=== PATIENT | female | born 1985 | race Two or more races ===

== ENCOUNTER 2023-04-20 13:34 | Outpatient (REF) | payer MEDICAID, SELFPAY ==
--- NOTE | ~2023-04-20 | XR_ITS ---
EXAMINATION: XR FOOT, RIGHT CLINICAL INFORMATION: Right foot pain worse on the second digit proximal and medial joint.. COMPARISON: None available. TECHNIQUE: AP, lateral, and oblique views of the right foot. FINDINGS: The bones and soft tissues are normal. No fracture. Alignment is anatomic. Joint spaces are maintained. XR/XR foot RT min 3V IMPRESSION: Unremarkable right foot exam.
== END 2023-04-20 13:35 | disposition home or self-care (01) ==
LOC: HO.HHCX 13:34
PROVIDERS: Visit Provider Family Medicine
DX: M79.674 Pain in right toe(s) (principal)
CPT/HCPCS: 73630

== ENCOUNTER 2023-05-15 13:58 | Outpatient (REF) | payer MEDICAID, SELFPAY ==
[2023-05-15 18:06] LABS: TSH reflex Free T4 0.38 uIU/mL (0.32-4.0)
[2023-05-17 05:53] LABS: Prolactin 6.1 ng/mL
== END 2023-05-15 13:59 | disposition home or self-care (01) ==
LOC: HO.CHCLDS 13:58
PROVIDERS: Visit Provider Advanced Practice Midwife
DX: N91.5 Oligomenorrhea, unspecified (principal)
CPT/HCPCS: 36415; 84146; 84443

== ENCOUNTER 2023-05-22 10:26 | Outpatient (REF) | payer MEDICAID, SELFPAY ==
[2023-05-24 05:58] LABS: Follicle Stimulating Hormone 1.9 mIU/mL
[2023-05-25 23:14] LABS: Estradiol Ultra Sensitive 131 pg/mL
== END 2023-05-22 10:27 | disposition home or self-care (01) ==
LOC: HO.CHCLDS 10:26
PROVIDERS: Visit Provider Advanced Practice Midwife
DX: N91.5 Oligomenorrhea, unspecified (principal)
CPT/HCPCS: 36415; 82670; 83001

== ENCOUNTER 2024-03-05 12:46 | Outpatient (REF) | payer MEDICAID, SELFPAY ==
[2024-03-06 06:06] LABS: CT PCR NOT DETECTED (Not Detect.); NG PCR NOT DETECTED (Not Detect.)
== END 2024-03-05 12:47 | disposition home or self-care (01) ==
LOC: HO.CHCLNP 12:46
PROVIDERS: Visit Provider Family Medicine
DX: Z02.1 Encounter for pre-employment examination (principal)
CPT/HCPCS: 87491; 87591

== ENCOUNTER 2024-03-12 09:26 | Outpatient (REF) | payer MEDICAID, SELFPAY ==
[2024-03-12 14:13] LABS: MANUAL DIFF FLAG NO
[2024-03-12 14:30] LABS: Basophils Absolute Auto 0.1 X10*3/uL (0.0-0.2); Basophils Percent Auto 0.8 % (0-2); Eosinophils Percent Auto 0.3 % (0-4); Hematocrit 40.8 % (37.0-47.0); Hemoglobin 13.7 g/dl (12.0-16.0); Imm Gran Abs Auto 0.04 X10*3/uL (0.00-0.03); Imm Gran Pct Auto 0.7 % (0.0-0.4); Lymphocytes Absolute Auto 1.4 X10*3/uL (1.2-4.9); Mean Corpuscular HGB Conc 33.6 g/dl (31.0-35.0); Mean Corpuscular Hemoglobin 32.3 pg (27.0-33.0); Mean Corpuscular Volume 96.2 fL (80.0-98.0); Mean Platelet Volume 11.1 fL (9.4-12.3); Monocytes Absolute Auto 0.7 X10*3/uL (0.1-1.2); Monocytes Percent Auto 11.4 % (2-11); Neutrophils Percent Auto 64.8 % (45-73); Platelet Count 267 X10*3/uL (160-400); Red Blood Count 4.24 X10*6/uL (4.20-5.50); Red Cell Distribution Width 12.5 % (11.0-16.0); White Blood Count 6.1 X10*3/uL (4.8-10.8)
[2024-03-12 15:07] LABS: Insulin 10 uU/mL (2-29); TSH reflex Free T4 0.67 uIU/mL (0.32-4.0)
[2024-03-12 15:08] LABS: Anion Gap 11 (12-20)
[2024-03-12 15:13] LABS: Alanine Aminotransferase 15 U/L (0-31); Albumin Level 4.1 g/dL (3.5-5.0); Alkaline Phosphatase 71 U/L (39-117); Aspartate Amino Transferase 12 U/L (5-31); Bilirubin Total 0.6 mg/dL (0.0-1.0); Blood Urea Nitrogen 13 mg/dL (9-16); Calcium 9.5 mg/dL (8.4-10.2); Carbon Dioxide 27 mmol/L (22-29); Chloride 105 mmol/L (96-108); Cholesterol 187 mg/dL (<200); Estimated Glomerular Filt Rate > 60; Glucose Random 75 mg/dL (60-115); HDL Cholesterol 53 mg/dL (>40); LDL Cholesterol Calculated 115 mg/dL (<100); Potassium 4.1 mmol/L (3.3-5.1); Sodium 139 mmol/L (135-145); Total Protein 7.4 g/dL (6.5-8.0); Triglycerides 97 mg/dL (<150)
[2024-03-13 07:26] LABS: HIV AB/AG Nonreactive (Nonreactive); HIV Num 1 0.06 S/CO (0.00-0.99); ~HepC Num1 0.14 S/CO (0.00-0.79); ~Hepatitis C Antibody Nonreactive (Nonreactive)
[2024-03-13 07:39] LABS: Syphilis Screen Nonreactive (Nonreactive)
== END 2024-03-12 09:27 | disposition home or self-care (01) ==
LOC: HO.CHCLDS 09:26
PROVIDERS: Visit Provider Family Medicine
DX: Z02.1 Encounter for pre-employment examination (principal); Z11.4 Encounter for screening for human immunodeficiency virus [HIV]; E66.3 Overweight
CPT/HCPCS: 36415; 80053; 80061; 83525; 84443; 85025; 86780; 86803; 87389

== ENCOUNTER 2024-04-01 15:09 | Outpatient (REF) | payer MEDICAID, SELFPAY ==
[2024-04-01 17:57] LABS: MANUAL DIFF FLAG NO
[2024-04-01 18:17] LABS: Basophils Absolute Auto 0.1 X10*3/uL (0.0-0.2); Basophils Percent Auto 0.7 % (0-2); Hematocrit 41.8 % (37.0-47.0); Hemoglobin 13.8 g/dl (12.0-16.0); Imm Gran Abs Auto 0.05 X10*3/uL (0.00-0.03); Imm Gran Pct Auto 0.5 % (0.0-0.4); Lymphocytes Absolute Auto 1.7 X10*3/uL (1.2-4.9); Lymphocytes Percent Auto 16.9 % (20-40); Mean Corpuscular Hemoglobin 31.9 pg (27.0-33.0); Mean Corpuscular Volume 96.5 fL (80.0-98.0); Mean Platelet Volume 10.9 fL (9.4-12.3); Monocytes Absolute Auto 1.1 X10*3/uL (0.1-1.2); Monocytes Percent Auto 10.2 % (2-11); Neutrophils Absolute Auto 7.4 x10*3/uL (2.0-8.3); Neutrophils Percent Auto 71.7 % (45-73); Platelet Count 279 X10*3/uL (160-400); Red Blood Count 4.33 X10*6/uL (4.20-5.50); Red Cell Distribution Width 12.2 % (11.0-16.0); White Blood Count 10.3 X10*3/uL (4.8-10.8)
[2024-04-01 18:20] LABS: C Reactive Protein 0.31 mg/dL (< or = 0.50)
[2024-04-01 19:20] LABS: Erythrocyte Sedimentation Rate 28 MM/HR (0-20)
== END 2024-04-01 15:10 | disposition home or self-care (01) ==
LOC: HO.CHCLDS 15:09
PROVIDERS: Visit Provider Internal Medicine
DX: R22.1 Localized swelling, mass and lump, neck (principal)
CPT/HCPCS: 36415; 85025; 85652; 86140

== ENCOUNTER 2025-03-19 11:23 | Outpatient (REF) | payer MEDICAID, SELFPAY ==
[2025-03-19 15:02] LABS: Anion Gap 10 (12-20); Blood Urea Nitrogen 15 mg/dL (9-16); Calcium 8.9 mg/dL (8.4-10.2); Carbon Dioxide 26 mmol/L (22-29); Chloride 106 mmol/L (96-108); Estimated Glomerular Filt Rate > 60; Potassium 3.9 mmol/L (3.3-5.1); Sodium 138 mmol/L (135-145)
== END 2025-03-19 11:24 | disposition home or self-care (01) ==
LOC: HO.CHCLDS 11:23
PROVIDERS: Visit Provider Student in an Organized Health Care Education/Training Program
DX: R51.9 Headache, unspecified (principal)
CPT/HCPCS: 36415; 80048

== ENCOUNTER 2025-05-15 09:32 | Outpatient (REF) | payer MEDICAID, SELFPAY ==
--- OUTSIDE RECORDS SUMMARY | 2025-05-14 14:00 | XMS_ITS | Encounter Summary ---
Author Organization [employer] Address [address] [facility] [address] [place] [address] Care Team Providers Care Mobile Product Manager Name Role Phone Enriqueta Downs MD Primary Care Provider Encounter Details Date Type Department Care Team ([facility] Contact Info) Description 05/14/2025 2:00 PM EST Office Visit [facility] MED & PEDS [address] [place], [place] [phone] Enriqueta Downs MD [address] [place] [address] Annual physical exam (Primary Dx); Encounter for immunization; Constipation, unspecified constipation type Social History Tobacco Use Types Packs/Day Years Used Date Smoking Tobacco: Never Passive Smoke Exposure: Never Smokeless Tobacco: Never Alcohol Use Standard Drinks/Week Comments Never 0 (1 standard drink = 0.6 oz pur e alcohol) Depression Answer Date Recorded Patient Health Questionnaire-9 Score 3 05/14/2025 Patient Health Questionnaire-9 Score 3 05/14/2025 Last PHQ-9: Questionnaire Data Not on file 1 07/14/2024 Housing Stability Answer Date Recorded What is your housing situation today? I have mine ewiss 08/19/[address] you li ve. Do you have problems with any of the following? None of the above 08/19/2024 Food Insecurity Answer Date Recorded Within the past 12 months, y ou worried that your food would run out before you got money to buy more: Never True 08/19/2024 Within the past 12 months,th e food you bought just didn't last and you didn't have enough money to get more: Never True Transportation Answer Date Recorded In the past 12 months, has l ack of transportation kept you from medical appts, meetings, work or from getting things needed for daily living? No 08/19/2024 Utilities Answer Date Recorded In the past 12 months, has t he electric, gas, oil or water company threatened to shut off services in your home? No 08/19/2024 Depression Answer Date Recorded Patient Health Questionnaire-2 Score 0 05/14/2025 Internet Access Answer Date Recorded Internet Access Q1 Yes 08/19/2024 Internet Access Q2 Not on file 08/19/2024 Comments No Sex and Gender Information Value Date Recorded Sex Assigned at Female 10/20/2022 12:52 PM EDT Legal Sex Female 2:33 PM EDT Gender Identity Female 10/20/2022 12:52 PM EDT Sexual Orientation Straight 10/20/2022 12 :59 PM EDT documented as of this encounter Last Filed Vital Signs Vital Sign Reading Time Taken Comments Blood Pressure 124/84 05/14/2025 2:21 PM EST Pulse 64 05/14/2025 2:21 PM EST Temperature 37.1 C (98.8 F) 05/14/2025 2:21 PM EST Respiratory Rate 20 05/14/2025 2:21 PM EST Oxygen Saturation 98% 05/14/2025 2:21 PM EST Inhaled Oxygen Concentration - - Weight 78.7 kg (173 lb 9.6 oz) 05/14/2025 2:21 P M EST Height 162.6 cm (5' 4 ) 05/14/2025 2:21 PM EST Body Mass Index 29.8 05/14/2025 2:21 PM EST documented in this encounter Functional Status * Over the past 2 weeks, how often have you been bothered by any of the following problems? Question Answer Date of Assessment Author Patient Health Questionnaire-2 Score 0 04/26 3:17 PM EST Akbar Childs MA * Little interest or pleasure in doing things Answer Date of Assessment Author Not at all 05/14/2025 3:17 PM EST Akbar Childs MA * Feeling down, depressed, or hopeless Answer Date of Assessment Author Not at all 05/14/2025 3:17 PM EST Akbar Childs MA * Trouble falling or staying asleep, or sleeping too much Answer Date of Assessment Author Several days 05/14/2025 3:17 PM Akbar Thomas MA * Feeling tired or having little energy Answer Date of Assessment Author More than half the days 05/14/2025 3:17 PM Akbar Krishnan MA * Poor appetite or overeating Answer Date of Assessment Author Not at all 05/14/2025 3:17 PM Akbar Thomas MA * Feeling bad about yourself - or that you are a failure or have let yourself or your family down Answer Date of Assessment Author Not at all 05/14/2025 3:17 PM Akbar Thomas MA * Trouble concentrating on things, such as reading the newspaper or watching television Answer Date of Assessment Author Not at all 05/14/2025 3:17 PM Akbar Thomas MA * Moving or speaking so slowly that other people could have noticed? Or the opposite - being so fidgety or restless that you have been moving around a lot more than usual. Answer Date of Assessment Author Not at all 05/14/2025 3:17 PM Akbar Thomas MA * Thoughts that you would be better off or hurting yourself in some way Answer Date of Assessment Author Not at all 05/14/2025 3:17 PM Akbar Thomas MA * Patient Health Questionnaire-9 Score Answer Date of Assessment Author 3 05/14/2025 3:17 PM Akbar Thomas MA * How difficult have these problems made it for you to do your work, take care of things at home, or get along with other people? Answer Date of Assessment Author Not difficult at all 05/14/2025 3:17 PM Akbar Gagnon MA documented as of this encounter Plan of Treatment Upcoming Encounters Date Type Department Care Team (Late st Contact Info) Description 06/12/2025 12:45 PM EST Office Visit [facility] ADULT DENTAL [address] [place] [address] Lilliam Escobar 07/09/2025 1:00 PM EST Office Visit [facility] OPTOMETRY [address] [place] [address] Shaniqua Ramirez OD [address] [place] [address] Scheduled Orders Name Type Priority Associated Diagnoses Orde r Schedule CBC auto differential Lab Routine Annual physical exam Expected: 05/14/2025 (Approximate), Expires: 05/14/2026 Comprehensive Metabolic Panel Lab Routine Annual physical exam Expected: 05/14/2025 (Approximate), Expires: 05/14/2026 Lipid Panel, Standard Lab Routine Annual physical exam Expected: 05/14/2025 (Approximate), Expires: 05/14/2026 TSH W/Reflex to FT4 Lab Routine Annual physical exam Expected: 05/14/2025 (Approximate), Expires: 05/14/2026 documented as of this encounter Visit Diagnoses Diagnosis Annual physical exam- Primary Routine general medical examination at a health care facility Encounter for immunization Constipation, unspecified constipation type documented in this encounter Additional Health Concerns Assessment Noted Time PHQ-9 Depression Total Score: 3 05/14/20 25 3:17 PM EST documented as of this encounter Care Teams Mobile Product Manager Relationship Specialty Start Date End Date Enriqueta Downs MD [address] [place] [phone] PCP - General Family Medicine 10/20/22 documented as of this encounter
--- OUTSIDE RECORDS SUMMARY | 2025-05-15 10:06 | XMS_ITS | Clinical Summary ---
Author Organization [employer] Address [address] [facility] [address] [place] [address] Care Team Providers Care Can Closing Machine Tender Name Role Phone Enriqueta Downs MD Primary Care Provider [phone] Allergies No known active allergies Medications No known medications Active Problems Problem Noted Date Diagnosed Date Blurry vision, bilateral 03/05/2024 Assessment & Plan (03/05/2024 11:38 AM EDT): Referral to Hydroelectric Station Operator Chief for further evaluation of Sx. Pain of toe of right foot 04/20/2023 Assessment & Plan (04/20/2023 11:42 AM EDT): Patient that presented visit with R foot pain, worsen on 2nd digit, will be sent for Foot X-Rays. Referred to Podiatry. Physical exam, pre-employment 02/27/2023 Assessment & Plan (03/05/2024 11:37 AM EDT): Ordering lab work for further evaluation. Assessment & Plan (02/27/2023 9:54 AM EDT): Discussed calorie deficit, recommended reduction of 20-30% of maintenance calories; aircraft technician referral offered. Recommended to decrease soda and sugary beverage consumption. Recommended at least 20 g per meal of protein to assist with satiety. Recommended at least 150 min/week of moderate intensity exercise. Constipation 11/14/2022 Assessment & Plan (09/03/2023 10:36 PM EDT): Continued intermittent episodes of constipation. Has made dietary changes which has helped. Assessment & Plan (02/20/2023 3:00 PM EDT): Continued intermittent episodes of constipation. Reports improvement on senna, will resend for symptom relief. Assessment & Plan (11/14/2022 2:33 PM EDT): Will start on miralax prn. Overweight 10/20/2022 Assessment & Plan (03/05/2024 11:37 AM EDT): Continue lifestyle changes, ordering lab work for recheck. Assessment & Plan (09/03/2023 10:35 PM EDT): Referred to aircraft technician for a detailed assessment and diet plan. She is encouraged to continue her exervise program and to monitor her dietary intake to address her concerns about constipation. Discussed calorie deficit, recommended reduction of 20-30% of maintenance calories; aircraft technician referral offered. Recommended to decrease soda and sugary beverage consumption. Recommended at least 20 g per meal of protein to assist with satiety. Recommended at least 150 min/week of moderate intensity exercise. Assessment & Plan (10/20/2022 1:51 PM EDT): Will send labs to check levels and follow up. Resolved Problems Problem Noted Date Diagnosed Date Resolved Date Cramp of muscle of left upper extremity 10/20/2022 03/05/2024 Assessment & Plan (10/20/2022 1:52 PM EDT): Patient with muscle cramps in LUE and discomfort described as heaviness. Will send for EMG at [facility]. History of Helicobacter pylori infection 11/08/2021 05/14/2025 Encounters Date Type Department Care Team Description 05/14/2025 2:00 PM EST Office Visit [facility] MED & PEDS [address] [place] [address] Enriqueta Downs MD Annual physical exam (Primary Dx); Encounter for immunization; Constipation, unspecified constipation type 05/14/2025 Travel 05/13/2025 Travel 05/07/2025 Patient Outreach [facility] [address] [place] [address] Enriqueta Downs MD Pre-visit Planning (SDOH screening completed on 08/19/24) 03/31/2025 Orders Only [facility]ED[facility] [address] [place] [address] Adelaida Medina MD Nonintractable episodic headache, unspecified headache type (Primary Dx) 03/31/2025 Results Follow-Up [facility] [address] [place] [address] Adelaida Medina MD MR Brain w/o Contrast 03/19/2025 11:15 AM EDT Office Visit [facility]ED[facility] [address] [place] [address] Adelaida Medina MD Nonintractable episodic headache, unspecified headache type (Primary Dx) 03/19/2025 Travel 03/18/2025 Telephone [facility] [address] [place] [phone] Enriqueta Downs MD Nurse Triage 03/04/2025 Patient Outreach [facility] [address] [place] [phone] Enriqueta Downs MD Care Coordination (CH[facility] outreach for SDOH PT-1 and food needs-referral completed /) 03/04/2025 Telephone [facility] [address] [place] [address] Enriqueta Downs MD PT1 02/20/2025 Travel from Last 3 Months Immunizations Immunization Administration Dates Next Due DTP 12/30/1991, 9,05/11/1988,1987,1987 DTaP / HiB / IPV 12/21/1988 Hep A, Adult 11/22/2021 Hep B, adult 04/24/2000,01/26/1999,12/29/1998 IPV 12/30/1991, 9,05/11/1988,1987,1987 Influenza Injectable Quadriv alant Preservative Free IIV4 MDCK 04/21/2020 Influenza injectable quadriv alent preservative free 04/20/2023 Influenza, IIV3, injectable 06/22/2009 Influenza, Unspecified 06/22/2009 Influenza, seasonal, injecta ble, preservative free 05/14/2025,03/05/2024,06/05/2012 MMR 12/29/1996,07/13/1988 TD (adult), 2 Lf tetanus tox oid, preservative free, adsorbed 12/29/1998 Td (adult) 12/29/1998 Tdap 01/29/2019,09/13/2012,08/29/2010 Varicella 01/01/2012,04/19/2011,01/27/2000 Family History Medical History Relation Name Comments No Known Problems Father Diabetes Paternal Grandfather Heart disease Paternal Grandfather Hypertension Paternal Grandfather Heart disease Paternal Grandmother Hypertension Paternal Grandmother Relation Name Status Comments Father Paternal Grandfather Paternal Grandmother Social History Tobacco Use Types Packs/Day Years Used Date Smoking Tobacco: Never Passive Smoke Exposure: Never Smokeless Tobacco: Never Tobacco Cessation:Counseling Given: Not Answered Alcohol Use Standard Drinks/Week Comments Never 0 (1 standard drink = 0.6 oz pur e alcohol) Depression Answer Date Recorded Patient Health Questionnaire-9 Score 3 05/14/2025 Patient Health Questionnaire-9 Score 3 05/14/2025 Last PHQ-9: Questionnaire Data Not on file 1 07/14/2024 Housing Stability Answer Date Recorded What is your housing situation today? I have mine weiss 08/19/[address] you li [...] Orientation Straight 10/20/2022 12 :59 PM EDT Last Filed Vital Signs Vital Sign Reading [...] Mass Index 29.8 05/14/2025 2:21 PM EST Plan of Treatment Upcoming Encounters Date Type Department Care Team (Late st Contact Info) Description 06/12/2025 12:45 PM EST Office Visit [facility] ADULT DENTAL [address] [place] [address] Lilliam Escobar 07/09/2025 1:00 PM EST Office Visit [facility] OPTOMETRY [address] [place], [place] [phone] Shaniqua Rmairez, OD [address] [place] [address] Health Maintenance Due Date Last Done Comments Family Planning (PISQ) 2002 HPV Vaccines (1 - 3-dose series) 2002 Dental X-Ray: Bitewings 05/29/2025 05/28/2024 Dental Oral Exam 06/11/2025 12/09/2024, 05/28/2024 Dental Prophylaxis 06/11/2025 12/09/2024, 05/28/2024 Alcohol/Substance Use Screening 08/19/2025 08/19/2024 SDOH Screening 08/19/2025 08/19/2024 Pap Smear 11/14/2025 11/14/2022 Disability Screening 05/13/2026 05/13/2025 COVID-19 Vaccine ( season) 2026 11/24/2020, 11/03/2020 Postponed from 02/23/2025 (Patient Refused) Depression Screening 05/14/2026 05/14/2025, 05/14/20 Tobacco Screening 05/14/2026 05/14/2025 Dental X-Ray: Full Mouth 05/29/2027 05/28/2024 Cervical Cancer Screening 11/15/2027 HPV/Cotest 11/15/2027 11/14/2022 DTaP/Tdap/Td Vaccines (9 - Td or Tdap) 01/29/2029 01/29/2019, 09/13/2012, 08/29/2010, Additional history exists Zoster Vaccines (1 of 2) 2037 RSV Patients and Patients Aged 60 years or older (1 - 1-dose 75+ series) 2062 HIB Vaccines Completed 12/21/1988 IPV Vaccines Completed 12/30/1991, 04/27, 12/21/1988, Additional history exists Hepatitis B Vaccines Completed 04/24/2000, 01/26/1999, 12/29/1998 Hepatitis A Vaccines Aged Out 11/22/2021 No long er eligible based on patient's age to complete this topic HIV Screening Completed 03/12/2024, 11/08/2021 Hepatitis C Screening Completed 03/12/2024, 022 Influenza Vaccine Completed 05/14/2025, , 04/20/2023, Additional history exists Meningococcal B Vaccine Aged Out No l onger eligible based on patient's age to complete this topic Meningococcal Vaccine Aged Out No ramon tamia eligible based on patient's age to complete this topic Pneumococcal Vaccine: Pediatrics (0 to 5 Years) and At-Risk Patients (6 to 49) Years Aged Out No longer eligible based on patient's age to complete this topic RSV under 20 months Aged Out No longe r eligible based on patient's age to complete this topic Rotavirus Vaccines Aged Out No longer eligible based on patient's age to complete this topic Procedures Procedure Name Priority Date/Time Associated Diagnosis Comments MR BRAIN WO CONTRAST Routine 03/30/2025 Nonintractable episodic headache, unspecified headache type BASIC METABOLIC PANEL Routine 03/19/2025 11:27 AM EDT Nonintractable episodic headache, unspecified headache type PROPHYLAXIS - ADULT Routine 12/09/2024 3 :00 PM EDT PERIODIC ORAL EVALUATION - ESTABLISHED PATIENT Routine 12/09/2024 3:00 PM EDT INTRAORAL - COMPLETE SERIES OF RADIOGRAPHIC IMAGES Routine 05/28/2024 10:00 AM EST Dental caries Gingivitis HEPATITIS C AB W/REFL TO HCV RNA, QN, PCR Routine 03/12/2024 9:29 AM EDT Physical exam, pre-employment HIV 1/2 ANTIGEN/ANTIBODY, FOURTH GENERATION W/RFL Routine 03/12/2024 9:29 AM EDT Physical exam, pre-employment IMAGE-GUIDED PAP W/AGE BASED SCR,W/CT/NG/TRICH Routine 11/14/2022 2:20 PM EDT Cervical cancer screening from Last 3 Months or Most Recently Relevant to Health Maintenance Results * MR Brain w/o Contrast (03/30/2025) Anatomical Region Laterality Modality Brain Magnetic Resonan ce Adelaida Medina MD [facility] MRI PROCEDURES Final Result * (ABNORMAL) Basic Metabolic Panel (03/19/2025 11:27 AM EDT) Sodium 138 135 - 145 mmol/L [facility] Potassium 3.9 3.3 - 5.1 mmol/L [facility] Chloride 106 96 - 108 mmol/L [facility] Carbon Dioxide 26 22 - 29 mmol/L [facility] Anion Gap 10(L) 12 - 20 [facility] Urea Nitrogen (BUN) 15 9 - 16 mg/dL [facility] Creatinine, Serum 0.65 0.5 - 1.4 mg/dL [facility] Estimated Glomerular Filt Rate >60 [facility] Comment:Chronic Kidney Disea se: Estimated GFR < 60 mL/min/[id number] Kidney Disease: Estimated GFR < 15 mL/min/1.73m2 Glucose 85 60 - 115 mg/dL [facility] Calcium 8.9 8.4 - 10.2 mg/dL [facility] Blood Venous blood specimen / Unknown 03/19/2025 11:27 AM EDT 03/19/2025 2:37 PM EDT us Adelaida Medina MD LAB BLOOD ORDERABLES Final Resul t Performing Organization Address [facility]/ZIP Co de Phone Number [facility] [address] [place] [phone] * Hepatitis C Antibody with Reflex to HCV, RNA, Quantitative, Real-Time PCR (03/12/2024 9:29 AM EDT) Hepatitis C Antibody Nonreactive Nonreactive [facility] Comment:Antibodies to HCV no t detected; does not exclude early acuteHCV infection. Blood Venous blood specimen / Unknown 03/12/2024 9:29 AM EDT 03/12/2024 2:13 PM EDT us Enriqueta Downs MD LAB BLOOD ORDERABLES Final Re sult Performing Organization Address [facility]/ZIP Co de Phone Number [facility] [address] [place] [phone] * HIV-1/2 Antigen and Antibodies, Fourth Generation, with Reflexes (03/12/2024 9:29 AM EDT) HIV AB/AG Nonreactive Nonreactive [facility] Comment:HIV-1 p24 Ag and/or HIV-1/HIV-2 Ab not detected.A test result that is nonreactive does not exclude thepossibility of exposure to or infection with HIV-1 and/orHIV-2. Nonreactive results in this assay for individualswith prior exposure to HIV-1 and/or HIV-2 may be due toantigen and antibody levels that are below the limit ofdetection of this assay.The [employer] HIV Ag/Ab Combo assay result andsupplemental assay results should be interpreted inconjunction with the patient's clinical presentation,history and other laboratory results. If the results areinconsistent with clinical evidence, additional testing issuggested to confirm the result. Blood Venous blood specimen / Unknown 03/12/2024 9:29 AM EDT 03/12/2024 2:13 PM EDT us Enriqueta Downs MD LAB BLOOD ORDERABLES Final Re sult [facility] [address] [place] [phone] * Image-Guided Pap with Age-Based Screening??with CT/NG,??Trichomonas (11/14/2022 2:20 PM EDT) Comment [employer] Comment: This order for age-based cervical cancer and STI screening follows ACOG guidelines(PB 168, 140, ESV339). See individual assays for performing site location. Clinical Information: 37 YO F NEEDS CER CAN SCREENING [employer] LMP: 10/20/22 [employer] Prev. PAP: NO [facility] Prev. BX: NO [facility] SOURCE: None given [employer] Statement Of Adequacy: [employer] Comment: Satisfactory for evaluation. Endocervical/transformation zone component present. Interpretation/Re sult: Negative for intraepithelial lesion or malignancy. [employer] COMMENT: This Pap test has been evaluated with computer assisted technology. [employer] Desk Maker: Joseph NoiseFreet Comment: KR, CT(ASCP) CT screening location: [address] [address] (Always Message) [facility] [employer] Comment: EXPLANATORY NOTE: The Pap is a screening test for cervical cancer. It is not a diagnostic test and is subject to false negative and false positive results. It is most reliable when a satisfactory sample, regularly obtained, is submitted with relevant clinical findings and history, and when the Pap result is evaluated along with historic and current clinical information. HPV nRNA E6/E7 Not Detected Not Detected [employer] Comment: Methodology: Outsole [employer]acker-Mediated Amplification This assay detects E6/E7 viral messenger RNA (mRNA) from 14 high-risk HPV types (16,18,31,33,35,39,45,51,52,56,58,59,66,68). Cervical sources are required for HPV testing. If a vaginal source from a patient who has had a total hysterectomy with removal of cervix was submitted, please contact the testing laboratory for alternative testing options. For additional information, please refer to [email or web address].[email or web address]/faq/PXC581v7 (This link if provided for information/ educational purposes only.) Chlamydia trachomatis RNA, TMA, Urogenital NOT DETECTED NOT DETECTED [employer] Neisseria gonorrhoeae RNA, TMA, Urogenital NOT DETECTED NOT DETECTED [employer] Comment [employer] Comment: The analytical performance characteristics of this assay, when used to test SurePath(TM) specimens have been determined by [employer]. The modifications have not been cleared or approved by the FDA. This assay has been validated pursuant to the CLIA regulations and is used for clinical purposes. For additional information, please refer to https://NuORDER.[email or web address]/faq/ASX192 (This link is being provided for information/ educational purposes only.) Trichomonas vaginalis, QL, TMA, PAP Vial NOT DETECTED NOT DETECTED [employer] Comment: The analytical performance characteristics of this assay have been determined by [employer]. The modifications have not been cleared or approved by the FDA. This assay has been validated pursuant to the CLIA regulations and is used for clinical purposes. For additional information, please refer to [email or web address]/ [email or web address]/Trichomonastma (This link is being provided for information/ educational purposes only.) Cervix 11/14/2022 2:20 PM EDT 11/15/2022 5:48 AM EDT us Enriqueta Downs MD LAB CYTOLOGY ORDERABLES Final Result [facility] [address] [facility], [place] [address] [facility] [address] [place] [phone] from Last 3 Months or Most Recently Relevant to Health Maintenance Insurance [facility] C3 DENTAL-[facility] MEDICAID STAND ADULT Care Teams Can Closing Machine Tender Relationship Specialty Start Date End Date Enriqueta Downs MD [address] [place] [phone] PCP - General Family Medicine 10/20/22
--- OUTSIDE RECORDS SUMMARY | 2025-05-15 10:06 | XMS_ITS | Encounter Summary ---
Author Organization [employer] [facility] Address [address] [facility] 7t [place] [address] Care Team Providers Care Instructional Design Consultant Name Role Phone Enriqueta Downs MD Primary Care Provider [phone] Encounter Details Date Type Department Care Team (Latest Contact Info) Description 05/14/2025 Travel Social History Tobacco Use Types Packs/Day Years [...] PM EDT documented as of this encounter Functional Status * Over the past 2 weeks, how often have you been bothered by any of the following problems? Question Answer Date of Assessment Author Patient Health Questionnaire-2 Score 0 04/26 3:17 PM Akbar Thomas MA * Little interest or pleasure in doing things Answer Date of Assessment Author Not at all 05/14/2025 3:17 PM Akbar Thomas MA * Feeling down, depressed, or hopeless Answer Date of Assessment Author Not at all 05/14/2025 3:17 PM Akbar Thomas MA * Trouble falling or staying asleep, [...] Not difficult at all 05/14/2025 3:17 PM EST Akbar Vick MA documented as of this encounter Plan of Treatment Upcoming Encounters Date Type Department Care Team (Late st Contact Info) Description 06/12/2025 12:45 PM EST Office Visit [facility] CHC ADULT DENTAL [address] [place] [address] Lilliam Escobar 07/09/2025 1:00 PM EST Office Visit [facility] OPTOMETRY [address] [place] [address] Shaniqua Ramirez, OD [address] [place] [address] documented as of this encounter Visit Diagnoses Not on filedocumented in this encounter Additional Health Concerns Assessment Noted Time PHQ-9 Depression Total Score: 3 05/14/20 25 3:17 PM EST documented as of this encounter Care Teams Instructional Design Consultant Relationship Specialty Start Date End Date Enriqueta Downs MD [address] [place] [address] PCP - General Family Medicine 10/20/22 documented as of this encounter
--- OUTSIDE RECORDS SUMMARY | 2025-05-15 10:06 | XMS_ITS ---
Author Name [facility] Organization Unknown Care Team Organization Name Specialty Phone Email Start Date End Da te [facility] Valentine Knox APRN Primary Care 10/30/2022 02/11/2024 [facility] Eileen Duggan Primary Care 05/02/2022
--- OUTSIDE RECORDS SUMMARY | 2025-05-15 10:06 | XMS_ITS | Encounter Summary ---
Author Organization [employer] [facility] Address [address] [facility] 7t [place] [address] Care Team Providers Care Topology Teacher Name Role Phone Enriqueta Downs MD Primary Care Provider [phone] Encounter Details Date Type Department Care Team (Latest Contact Info) Description 05/13/2025 Travel Social History Tobacco Use Types Packs/Day [...] PM EDT documented as of this encounter Plan of Treatment Upcoming Encounters Date Type Department Care Team (Late st Contact Info) Description 06/12/2025 12:45 PM EST Office Visit [facility] CHC ADULT DENTAL [address] [place] [address] Lilliam Escobar 07/09/2025 1:00 PM EST Office Visit [facility] OPTOMETRY [address] [place] [address] Shaniqua Ramirez, OD [address] [place] [address] documented as of this encounter Visit Diagnoses Not on filedocumented in this encounter Additional Health Concerns Assessment Noted Time PHQ-9 Depression Total Score: 0 08/19/19 25 10:36 AM EST documented as of this encounter Care Teams Topology Teacher Relationship Specialty Start Date End Date Enriqueta Downs MD [address] [place] [address] PCP - General Family Medicine 10/20/22 documented as of this encounter
--- OUTSIDE RECORDS SUMMARY | 2025-05-15 10:06 | XMS_ITS | Encounter Summary ---
Author Organization [employer] Address [address] [facility] [address]t [place] [address] Care Team Providers Care Lobby Porter Name Role Phone Enriqueta Downs MD Primary Care Provider [phone] Reason for Visit * Reason Onset Date Comments PT-1 01/01/2025 Encounter Details Date Type Department Care Team ([facility] st Contact Info) Description 01/01/2025 Telephone [facility] MEDICINE [address] [place] [address] Enriqueta Downs MD [address] [place] [address] PT-1 Social History Tobacco Use Types Packs/Day Years Used Date Smoking Tobacco: Never Passive Smoke Exposure: Never Smokeless Tobacco: Never Alcohol Use Standard Drinks/Week Comments Never 0 (1 standard drink = 0.6 oz pur e alcohol) Depression Answer Date Recorded Patient Health Questionnaire-9 Score 0 08/19/2024 Patient Health Questionnaire-9 Score 0 08/19/2024 Last PHQ-9: Questionnaire Data Not on file 0 08/19/2024 Housing Stability Answer Date Recorded What is [...] Date Recorded Patient Health Questionnaire-2 Score 0 08/19/2024 Internet Access Answer Date Recorded Internet Access Q1 Yes 08/19/2024 Internet Access Q2 Not on file 08/19/2024 Comments No Sex and Gender Information Value Date Recorded Sex Assigned at Female 10/20/2022 12:52 PM EDT Legal Sex Female 2:33 PM EDT Gender Identity Female 10/20/2022 12:52 PM EDT Sexual Orientation Straight 10/20/2022 12 :59 PM EDT documented as of this encounter Miscellaneous Notes * Telephone Encounter - Dariusz Rubi - 01/01/2025 11:18 AM EDT Patient calling requesting PT1 Home Address verified: Y/N: Yes Provider name or facility name: [facility] Facility Address: [address] [place] [address] Escort needed: Y/N: Yes Do you have a wheelchair: Y/N: No If yes- Manual or electric: N/A Visits: Twice a month documented in this encounter Plan of Treatment Upcoming Encounters Date Type Department Care Team ([facility] Contact Info) Description 06/12/2025 12:45 PM EST Office Visit [facility] CHC ADULT DENTAL [address] [place] [address] Lilliam Escobar 07/09/2025 1:00 PM EST Office Visit [facility] OPTOMETRY [address] [place], [place] [phone] Shaniqua Ramirez OD [address] [place] [address] documented as of this encounter Visit Diagnoses Not on filedocumented in this encounter Additional Health Concerns Assessment Noted Time PHQ-9 Depression Total Score: 0 08/19/19 10:36 AM EST documented as of this encounter Care Teams Lobby Porter Relationship Specialty Start Date End Date Erniqueta Downs MD [address] [place] [address] PCP - General Family Medicine 10/20/22 documented as of this encounter
--- OUTSIDE RECORDS SUMMARY | 2025-05-15 10:06 | XMS_ITS | Encounter Summary ---
Author Organization [employer] Address [address] [facility] [place] [address] Care Team Providers Care [employer] Founder Name Role Phone Enriqueta Downs MD Primary Care Provider [phone] Reason for Visit * Reason Onset Date Comments Nurse Triage 03/18/2025 Encounter Details Date Type Department Care Team ([facility] st Contact Info) Description 03/18/2025 Telephone [facility] [address] [place] [address] Enriqueta Downs MD [address] [place] [address] Nurse Triage Social History Tobacco Use Types Packs/Day Years [...] encounter Miscellaneous Notes * Telephone Encounter - Sandee Collins RN - 03/18/2025 4:25 PM EDT Triage call Pt reports headache and dizziness for a month and a half. Pt feels like this headache is caused by drinking water. Pt describes this headache as pressure . Pt reports dizziness also which causes Pt to have to sit down for safety. Pt denies a spinning of the room just a lightheadedness.ASK apt with Dr. Medina 03/19/26 @ 1115am. Pt agrees with disposition and insurance is verified as active prior to booking. Protocol Used: Headache (Adult) Protocol-Based Disposition: See in Office or Video Visit Today or Tomorrow Video visit not offered Positive Triage Question: * Moderate headache (e.g., interferes with normal activities) present > 24 hours and unexplained * All higher-acuity triage questions were negative Care Advice Discussed: * Reassurance and Education - Muscle Tension Headache * Pain Medicines * Rest for Headache * Cold Pack for Headache * Neck Massage for Headache * Reasons To Call Back - Severe headache lasts over 2 hours after pain medicine - Headache lasts over 24 hours despite using a pain medicine - You become worse * Telephone Encounter - Cintia Dai - 03/18/2025 3:48 PM EDT Symptoms: Headache, Dizziness Outcome: Schedule an urgent appointment (within 4 hours) or talk to a nurse or provider soon Reason: Getting worse The caller accepted this outcome. Contact pt at [phone] Need asset protection professional documented in this encounter Plan of Treatment Upcoming Encounters Date Type Department Care Team ([facility] st Contact Info) Description 06/12/2025 12:45 PM EST Office Visit [facility] CHC ADULT DENTAL [address] [place] [address] Lilliam Escobar 07/09/2025 1:00 PM EST Office Visit [facility] OPTOMETRY [address] [place], [place] [phone] Shaniqua Ramirez, OD [address] [place] [address] documented as of this encounter Visit Diagnoses Not on filedocumented in this encounter Additional Health Concerns Assessment Noted Time PHQ-9 Depression Total Score: 0 08/19/19 25 10:36 AM EST documented as of this encounter Care Teams [employer] Founder Relationship Specialty Start Date End Date Enriqueta Downs MD [address] [place], [place] [phone] PCP - General Family Medicine 10/20/22 documented as of this encounter
--- OUTSIDE RECORDS SUMMARY | 2025-05-15 10:06 | XMS_ITS | Encounter Summary ---
Author Organization [employer] Address [address] [facility] 7t [place] [address] Care Team Providers Care Flavor Maker Name Role Phone Enriqueta Downs MD Primary Care Provider Reason for Visit * Reason Onset Date Comments PT1 03/04/2025 Encounter Details Date Type Department Care Team ([facility] Contact Info) Description 03/04/2025 Telephone [facility] CHC MED & PEDS [address] [place] [address] Enriqueta Downs MD [address] [place] [address] PT1 Social History Tobacco Use Types Packs/Day Years [...] encounter Miscellaneous Notes * Telephone Encounter - Collin Borden - 03/04/2025 8:58 AM EDT Patient calling requesting PT1 Home Address verified: Y/N: Yes Provider name or facility name: [facility] [employer] [facility]. Address: [address] [place] [address] [address], [place] [address] Escort needed: Y/N: No Do you have a wheelchair: Y/N: No If yes- Manual or electric: Visits: 2x month documented in this encounter Plan of Treatment Upcoming Encounters Date Type Department Care Team (Late st Contact Info) Description 06/12/2025 12:45 PM EST Office Visit [facility] CHC ADULT DENTAL [address] [place] [address] Lilliam Escobar 07/09/2025 1:00 PM EST Office Visit [facility] OPTOMETRY [address] [place], [place] [phone] Shaniqua Ramirez, OD [address] [place] [address] documented as of this encounter Visit Diagnoses Not on filedocumented in this encounter Additional Health Concerns Assessment Noted Time PHQ-9 Depression Total Score: 0 08/19/19 25 10:36 AM EST documented as of this encounter Care Teams Flavor Maker Relationship Specialty Start Date End Date Enriqueta Downs MD [address] [place] [address] PCP - General Family Medicine 10/20/22 documented as of this encounter
--- OUTSIDE RECORDS SUMMARY | 2025-05-15 10:06 | XMS_ITS | Encounter Summary ---
Author Organization [employer] Address [address] [facility] [address] [place] [address] Care Team Providers Care Hang Gliding Instructor Name Role Phone Enriqueta Downs MD Primary Care Provider [phone] Encounter Details Date Type Department Care Team ([facility] Contact Info) Description 03/31/2025 Results Follow-Up [facility] CHC MED & PEDS [address] [place], [place] [phone] Adelaida Medina MD [address] [place] [address] MR Brain w/o Contrast Social History Tobacco Use Types Packs/Day Years [...] as of this encounter Miscellaneous Notes * Result Encounter Note - Adelaida Medina MD - 03/31/2025 10:46 AM EDT Referred to Neuro documented in this encounter Plan of Treatment Upcoming Encounters Date Type Department Care Team (Late st Contact Info) Description 06/12/2025 12:45 PM EST Office Visit [facility] CHC ADULT DENTAL [address] [place] [address] Lilliam Escobar 07/09/2025 1:00 PM EST Office Visit [facility] OPTOMETRY [address] [place], [place] [phone] Shaniqua Ramirez, OD [address] [place] [address] documented as of this encounter Visit Diagnoses Not on filedocumented in this encounter Additional Health Concerns Assessment Noted Time PHQ-9 Depression Total Score: 0 08/19/19 10:36 AM EST documented as of this encounter Care Teams Hang Gliding Instructor Relationship Specialty Start Date End Date Enriqueta Downs MD [address] [place] [address] PCP - General Family Medicine 10/20/22 documented as of this encounter
[2025-05-15 14:23] LABS: MANUAL DIFF FLAG NO
[2025-05-15 14:39] LABS: Hematocrit 40.4 % (37.0-47.0); Hemoglobin 12.9 g/dl (12.0-16.0); Imm Gran Abs Auto 0.03 X10*3/uL (0.00-0.03); Imm Gran Pct Auto 0.4 % (0.0-0.4); Lymphocytes Absolute Auto 1.7 X10*3/uL (1.2-4.9); Mean Corpuscular HGB Conc 31.9 g/dl (31.0-35.0); Mean Corpuscular Hemoglobin 30.9 pg (27.0-33.0); Mean Corpuscular Volume 96.7 fL (80.0-98.0); NRBC Abs Auto 0.000 X10*3/uL (0.0-0.012); NRBC Pct Auto 0.0 /100WBC (0.0-0.2); Platelet Count 253 X10*3/uL (160-400); Red Blood Count 4.18 X10*6/uL (4.20-5.50); White Blood Count 7.1 X10*3/uL (4.8-10.8)
[2025-05-15 15:05] LABS: Alanine Aminotransferase 17 U/L (0-31); Albumin Level 4.2 g/dL (3.5-5.0); Alkaline Phosphatase 68 U/L (39-117); Anion Gap 9 (12-20); Aspartate Amino Transferase 21 U/L (5-31); Blood Urea Nitrogen 12 mg/dL (9-16); Calcium 8.9 mg/dL (8.4-10.2); Carbon Dioxide 29 mmol/L (22-29); Chloride 106 mmol/L (96-108); Cholesterol 203 mg/dL (<200); Estimated Glomerular Filt Rate > 60; HDL Cholesterol 50 mg/dL (>40); Potassium 3.6 mmol/L (3.3-5.1); Sodium 140 mmol/L (135-145); Total Protein 7.2 g/dL (6.5-8.0); Triglycerides 115 mg/dL (<150)
== END 2025-05-15 09:33 | disposition home or self-care (01) ==
LOC: HO.CHCLDS 09:32
PROVIDERS: Visit Provider Family Medicine
DX: Z00.00 Encounter for general adult medical examination without abnormal findings (principal)
CPT/HCPCS: 36415; 80053; 80061; 84443; 85025